=== PATIENT | female | born 1970 | race African-American/Black ===

== ENCOUNTER 2017-05-06 09:00 | Emergency (ER) | payer OTHER ==
[~2017-05-06] VITALS: Ht 170.2 cm; Wt 76.2 kg
[2017-05-06 09:06] VITALS: BP 121/91
== END 2017-05-06 09:43 | disposition home or self-care (01) ==
LOC: ER 09:00
DX: H10.31 Unspecified acute conjunctivitis, right eye (principal)

== ENCOUNTER 2017-06-20 15:40 | Emergency (ER) | payer OTHER ==
[~2017-06-20] VITALS: Ht 170.2 cm; Wt 85.7 kg
[2017-06-20 16:10] VITALS: BP 161/87
== END 2017-06-20 17:38 | disposition home or self-care (01) ==
LOC: ER 15:40
DX: H10.021 Other mucopurulent conjunctivitis, right eye (principal); Z76.0 Encounter for issue of repeat prescription; E66.01 Morbid (severe) obesity due to excess calories; Z68.29 Body mass index [BMI] 29.0-29.9, adult